=== PATIENT | male | born 1970 | race Caucasian/White ===

== ENCOUNTER 2025-05-28 10:53 | Inpatient (IN) | payer OTHER ==
[~2025-05-28] VITALS: Ht 182.9 cm; Wt 88.6 kg
[2025-05-28 13:47] VITALS: BP 121/92; TEMP 98.1
[2025-05-28 15:11] VITALS: BP 121/92; TEMP 98.1
[2025-05-28] MEDS ORDERED: REMEDY ESSENTIAL ZINC PASTE 113 GM TOP PRN (21:00)
[2025-05-28] MEDS ORDERED: ONDA4TAB5 PO (21:22)
[2025-05-28] MEDS ORDERED: PROC5TAB56 PO (21:22)
[2025-05-28] MEDS ORDERED: OXYC5TAB3 PO (21:22)
[2025-05-28] MEDS ORDERED: LEVE100023 PO (21:22)
[2025-05-28] MEDS ORDERED: IPRA3AMP23 NEB (21:22)
[2025-05-28] MEDS ORDERED: NA P133E RC (21:22)
[2025-05-28] MEDS ORDERED: BISA10SU95 RC (21:22)
[2025-05-28] MEDS ORDERED: OXYC10TA49 PO (21:22)
[2025-05-28] MEDS ORDERED: DOCU100C36 PO (21:22)
[2025-05-28] MEDS ORDERED: HEPA500034 SUBCUT (21:22)
[2025-05-28] MEDS ORDERED: PANT40TA49 PO (21:22)
[2025-05-28] MEDS ORDERED: HYDR-4075 PO (21:22)
[2025-05-28] MEDS ORDERED: DEXA10VI6 IVP ×2 (21:22)
[2025-05-28] MEDS ORDERED: POLY119P2 PO (21:22)
[2025-05-28] MEDS ORDERED: DEXA4TAB PO (21:22)
[2025-05-28] MEDS ORDERED: LACO50TA2 PO (21:22)
[2025-05-28] MEDS ORDERED: MAGN400O6 PO (21:22)
[2025-05-28] MEDS ORDERED: FLEET ENEMA 133 ML BOTTLE RC PRN (22:00)
[2025-05-28] MEDS ORDERED: OXYCODONE HCL 5 MG TABLET PO PRN ×2 (22:00)
[2025-05-28] MEDS ORDERED: ONDANSETRON HCL 4 MG TABLET PO PRN (22:00)
[2025-05-28 22:13] VITALS: BP 105/71; TEMP 98.4; O2SAT 95
[2025-05-28] MEDS ORDERED: ALBUTEROL SULFATE 2.5 MG/3 ML NEBU NEB PRN (22:15)
[2025-05-28] MEDS: DEXAMETHASONE SOD PHOSPHATE 4 MG INJ IV ONE (22:50)
[2025-05-29] MEDS: PANTOPRAZOLE SODIUM 40 MG TABLET.DR PO SCH (06:41)
[2025-05-29] MEDS: DEXAMETHASONE SOD PHOSPHATE 4 MG INJ IV SCH (06:41)
[2025-05-29 06:55] VITALS: BP 114/75; TEMP 98; O2SAT 95
[2025-05-29] MEDS ORDERED: POLYETHYLENE GLYCOL 3350 238 GM POWDER PO SCH (09:00)
[2025-05-29] MEDS ORDERED: MIRALAX 17 GM POWD.PACK PO SCH (09:00)
[2025-05-29] MEDS: LACOSAMIDE 50 MG TABLET PO SCH (09:16)
[2025-05-29] MEDS: DOCUSATE SODIUM 100 MG CAPSULE PO SCH (09:16)
[2025-05-29] MEDS: HEPARIN SODIUM,PORCINE 5,000 UNITS/ML VIAL SQ SCH (09:19)
[2025-05-29 09:50] VITALS: BP 128/83; TEMP 97.5; O2SAT 97
[2025-05-29] MEDS: MIRALAX 17 GM POWD.PACK PO PRN (17:44)
[2025-05-29 18:17] VITALS: BP 118/83; TEMP 97.6; O2SAT 97
[2025-05-29 20:00] VITALS: BP 122/78; TEMP 97.5; O2SAT 95
[2025-05-30 06:03] VITALS: BP 114/77; TEMP 97.6; O2SAT 97
[2025-05-30 07:45] VITALS: BP 116/83; TEMP 97.6; O2SAT 95
[2025-05-30 16:01] VITALS: BP 113/79; TEMP 97.8; O2SAT 96
[2025-05-30 20:05] VITALS: BP 110/71; TEMP 97.7; O2SAT 95
[2025-05-31 06:41] VITALS: BP 114/74; TEMP 98; O2SAT 95
[2025-05-31 07:00] LABS: PLATELET COUNT (AUTO) 337 K/uL (152-348); RED BLOOD CELL COUNT(AUTO) 4.02 MIL/uL (4.06-5.63); RED CELL DISTRIBUTION WIDTH 13.2 % (12.1-16.2); WHITE BLOOD COUNT (AUTO) 10.3 K/uL (3.6-10.2)
[2025-05-31 07:13] LABS: ASPARTATE AMINOTRANSFERASE 24.0 U/L (15-37); CREATININE 0.9 mg/dL (0.6-1.3); SODIUM SERUM 133.0 mmol/L (136-145); TOTAL PROTEIN, SERUM 6.5 g/dL (6.4-8.2); UREA NITROGEN, BLOOD 17.0 mg/dL (7-18)
[2025-05-31 08:00] VITALS: BP 117/77; TEMP 97.4; O2SAT 94
[2025-05-31] MEDS: MAGNESIUM HYDROXIDE 30 ML LIQUID UDC PO PRN (17:17)
[2025-05-31 18:03] VITALS: BP 120/77; TEMP 96.9; O2SAT 96
[2025-05-31 19:55] VITALS: BP 112/76; TEMP 97.8; O2SAT 96
[2025-06-01 05:56] VITALS: BP 119/77; TEMP 97.4; O2SAT 97
[2025-06-01 16:00] VITALS: BP 115/82; TEMP 97.5; O2SAT 94
[2025-06-01 20:30] VITALS: BP 116/78; TEMP 98; O2SAT 96
[2025-06-02 06:55] VITALS: BP 114/75; TEMP 97.9; O2SAT 96
[2025-06-02 09:37] VITALS: BP 117/74; TEMP 98.3; O2SAT 98
[2025-06-02 15:12] VITALS: BP 124/45; TEMP 97.9; O2SAT 95
[2025-06-02 20:15] VITALS: BP 100/64; TEMP 97.7; O2SAT 96
[2025-06-03 06:21] VITALS: BP 112/76; TEMP 97.8; O2SAT 96
[2025-06-03 08:00] VITALS: BP 110/67; TEMP 98.2; O2SAT 98
[2025-06-03 15:58] VITALS: BP 113/72; TEMP 97.7; O2SAT 98
[2025-06-04 02:22] VITALS: BP 108/65; TEMP 97.9; O2SAT 97
[2025-06-04 07:49] VITALS: BP 102/68; TEMP 97.9; O2SAT 95
[2025-06-04 16:46] VITALS: BP 112/77; TEMP 97.9; O2SAT 96
[2025-06-04 20:41] VITALS: BP 107/64; TEMP 97.5; O2SAT 95
[2025-06-05 08:00] VITALS: BP 109/78; TEMP 97.7; O2SAT 95
[2025-06-05 16:00] VITALS: BP 104/69; TEMP 98.1; O2SAT 97
[2025-06-05 20:15] VITALS: BP 102/55; TEMP 97.9; O2SAT 97
[2025-06-06 05:53] VITALS: BP 109/64; TEMP 97.8; O2SAT 96
[2025-06-06 08:00] VITALS: BP 108/71; TEMP 98; O2SAT 96
[2025-06-06 16:00] VITALS: BP 108/70; TEMP 97.8; O2SAT 95
[2025-06-06 20:08] VITALS: BP 100/60; TEMP 97.5; O2SAT 95
[2025-06-07 05:04] VITALS: BP 107/69; TEMP 97.9; O2SAT 96
[2025-06-07] MEDS: DEXAMETHASONE SOD PHOSPHATE 4 MG INJ IV SCH (06:25)
[2025-06-07 16:00] VITALS: BP 103/62; TEMP 97.9; O2SAT 94
[2025-06-07 21:17] VITALS: BP 99/62; TEMP 98; O2SAT 95
[2025-06-08 07:50] VITALS: BP 108/70; TEMP 97.8; O2SAT 98
[2025-06-08 16:00] VITALS: BP 108/60; TEMP 97.8; O2SAT 98
[2025-06-08 21:26] VITALS: BP 92/50; TEMP 98.6; O2SAT 95
[2025-06-09 05:00] VITALS: BP 107/64; TEMP 97.5; O2SAT 95
[2025-06-09 08:01] VITALS: BP 106/69; TEMP 97.8; O2SAT 95
[2025-06-09 08:17] LABS: PLATELET COUNT (AUTO) 316 K/uL (152-348); RED BLOOD CELL COUNT(AUTO) 3.86 MIL/uL (4.06-5.63); RED CELL DISTRIBUTION WIDTH 13.9 % (12.1-16.2); WHITE BLOOD COUNT (AUTO) 7.4 K/uL (3.6-10.2)
[2025-06-09 08:40] LABS: CREATININE 1.0 mg/dL (0.6-1.3); SODIUM SERUM 139.0 mmol/L (136-145); UREA NITROGEN, BLOOD 14.0 mg/dL (7-18)
[2025-06-09 16:01] VITALS: BP 97/69; TEMP 97.6; O2SAT 96
[2025-06-09 20:13] VITALS: BP 96/58; TEMP 98; O2SAT 94
[2025-06-10 05:42] VITALS: BP 107/69; TEMP 98; O2SAT 94
[2025-06-10 08:49] VITALS: BP 102/71; TEMP 98.1; O2SAT 93
[2025-06-10] MEDS: DEXAMETHASONE SOD PHOSPHATE 4 MG INJ IV SCH (09:18)
[2025-06-10 16:08] VITALS: BP 111/76; TEMP 97.7; O2SAT 92
[2025-06-10 19:58] VITALS: BP 99/64; TEMP 97.8; O2SAT 95
[2025-06-11 06:42] VITALS: BP 110/70; TEMP 97.2; O2SAT 96
[2025-06-11 08:00] VITALS: BP 103/67; TEMP 98; O2SAT 95
[2025-06-11 16:24] VITALS: BP 97/68; TEMP 97.9; O2SAT 93
[2025-06-11 19:40] VITALS: BP 93/66; TEMP 98.1; O2SAT 96
[2025-06-12 06:13] VITALS: BP 104/68; TEMP 98; O2SAT 95
[2025-06-12 07:46] VITALS: BP 108/74; TEMP 97.6; O2SAT 97
[2025-06-12] MEDS ORDERED: ALBU2.5V13 NEB (16:21)
[2025-06-12] MEDS ORDERED: ZINC113P3 TP (16:25)
== END 2025-06-12 14:30 | disposition short-term general hospital (02) | DRG 57 ==
PROVIDERS: ADMIT Physical Medicine & Rehabilitation Pain Medicine; ATTEND Internal Medicine
DX: I69.351 Hemiplegia and hemiparesis following cerebral infarction affecting right dominant side (principal); D68.59 Other primary thrombophilia; I82.431 Acute embolism and thrombosis of right popliteal vein; Z98.890 Other specified postprocedural states; D33.2 Benign neoplasm of brain, unspecified; R53.1 Weakness; F80.1 Expressive language disorder; I10 Essential (primary) hypertension; C44.91 Basal cell carcinoma of skin, unspecified; E78.5 Hyperlipidemia, unspecified; F41.9 Anxiety disorder, unspecified; G40.909 Epilepsy, unspecified, not intractable, without status epilepticus; K21.9 Gastro-esophageal reflux disease without esophagitis; Z87.891 Personal history of nicotine dependence; G89.29 Other chronic pain; R60.0 Localized edema
CPT/HCPCS: 36415; 82652; 83735; 84100; 84443; 85025; 85730; 97535-GO-CO; A4663; J1100; J1644

== ENCOUNTER 2025-06-12 15:31 | Inpatient (IN) | payer OTHER ==
[~2025-06-12] VITALS: Ht 182.9 cm; Wt 63.2 kg
[2025-06-12 15:00] VITALS: BP 106/66; TEMP 98.4; O2SAT 100
[~2025-06-12 15:31] MED LIST: BISA10SU95 RC; DEXA10VI6 IVP; DOCU100C36 PO; HEPA500034 SUBCUT; HYDR-4075 PO; IPRA3AMP23 NEB; LACO50TA2 PO; LEVE100023 PO; MAGN400O6 PO; NA P133E RC; ONDA4TAB5 PO; OXYC10TA49 PO; OXYC5TAB3 PO; PANT40TA49 PO; POLY119P2 PO; PROC5TAB56 PO
[2025-06-12] MEDS ORDERED: ALBU2.5V13 NEB (16:21)
[2025-06-12] MEDS ORDERED: ZINC113P3 TP (16:25)
[2025-06-12] MEDS ORDERED: MAGNESIUM HYDROXIDE 30 ML LIQUID UDC PO PRN (16:45)
[2025-06-12] MEDS ORDERED: ALBUTEROL SULFATE 2.5 MG/ 0.5 ML NEBU NEB PRN (16:45)
[2025-06-12] MEDS ORDERED: REMEDY ESSENTIAL ZINC PASTE 113 GM TOP PRN (16:45)
[2025-06-12] MEDS ORDERED: OXYCODONE HCL 5 MG TABLET PO PRN ×2 (16:45)
[2025-06-12] MEDS ORDERED: FLEET ENEMA 133 ML BOTTLE RC PRN (16:45)
[2025-06-12] MEDS ORDERED: POLYETHYLENE GLYCOL 3350 238 GM POWDER PO PRN (16:45)
[2025-06-12] MEDS ORDERED: MIRALAX 17 GM POWD.PACK PO PRN (17:13)
[2025-06-12] MEDS: DOCUSATE SODIUM 100 MG CAPSULE PO SCH (18:14)
[2025-06-12] MEDS ORDERED: ACETAMINOPHEN 325 MG TABLET PO PRN (18:15)
[2025-06-12] MEDS: LACOSAMIDE 50 MG TABLET PO SCH (20:22)
[2025-06-12] MEDS: HEPARIN SODIUM,PORCINE 5,000 UNITS/ML VIAL SQ SCH (20:27)
[2025-06-12 22:56] VITALS: BP 103/64; TEMP 98; O2SAT 95
[2025-06-13 04:00] VITALS: BP 107/77; TEMP 97.9; O2SAT 94
[2025-06-13 06:44] LABS: PLATELET COUNT (AUTO) 255 K/uL (152-348); RED BLOOD CELL COUNT(AUTO) 3.71 MIL/uL (4.06-5.63); RED CELL DISTRIBUTION WIDTH 13.8 % (12.1-16.2); WHITE BLOOD COUNT (AUTO) 5.4 K/uL (3.6-10.2)
[2025-06-13 07:01] LABS: ASPARTATE AMINOTRANSFERASE 65.0 U/L (15-37); CREATININE 0.9 mg/dL (0.6-1.3); SODIUM SERUM 138.0 mmol/L (136-145); TOTAL PROTEIN, SERUM 5.6 g/dL (6.4-8.2); UREA NITROGEN, BLOOD 15.0 mg/dL (7-18)
[2025-06-13 08:01] LABS: IRON, SERUM 59.0 ug/dL (50-175)
[2025-06-13 08:08] VITALS: BP 95/62; TEMP 97.7; O2SAT 96
[2025-06-13] MEDS: PANTOPRAZOLE SODIUM 40 MG TABLET.DR PO SCH (09:37)
[2025-06-13] MEDS: DEXAMETHASONE SOD PHOSPHATE 4 MG INJ IV SCH (09:37)
[2025-06-13 11:32] VITALS: BP 104/66; TEMP 97.8; O2SAT 95
[2025-06-13 16:10] VITALS: BP 99/67; TEMP 97.9; O2SAT 96
[2025-06-13 19:00] VITALS: BP 109/67; TEMP 97.9; O2SAT 94
[2025-06-13] MEDS ORDERED: LACOSAMIDE 50 MG TABLET ONE (21:19)
[2025-06-14 04:00] VITALS: BP 111/67; TEMP 97.7; O2SAT 100
[2025-06-14 06:59] LABS: PLATELET COUNT (AUTO) 248 K/uL (152-348); RED BLOOD CELL COUNT(AUTO) 3.81 MIL/uL (4.06-5.63); RED CELL DISTRIBUTION WIDTH 14.1 % (12.1-16.2); WHITE BLOOD COUNT (AUTO) 6.4 K/uL (3.6-10.2)
[2025-06-14 07:10] LABS: ASPARTATE AMINOTRANSFERASE 45.0 U/L (15-37); CREATININE 0.8 mg/dL (0.6-1.3); SODIUM SERUM 141.0 mmol/L (136-145); TOTAL PROTEIN, SERUM 5.9 g/dL (6.4-8.2); UREA NITROGEN, BLOOD 11.0 mg/dL (7-18)
[2025-06-14] MEDS: APIXABAN 5 MG TABLET PO SCH (09:12)
[2025-06-14] MEDS: LACOSAMIDE 50 MG TABLET PO SCH (11:40)
[2025-06-14] MEDS ORDERED: IOHEXOL 300MG/ML 100 ML INFUS..BTL ONE (15:17)
[2025-06-14] MEDS ORDERED: IV NORMAL SALINE 250 ML IV ONE (15:17)
[2025-06-14] MEDS ORDERED: SWABABLE VALVE TRANSFER SET EA MC ONE (15:17)
[2025-06-14 15:39] VITALS: BP 91/61; TEMP 98; O2SAT 96
[2025-06-14 21:26] VITALS: BP 99/55; TEMP 98; O2SAT 93
[2025-06-15 06:47] VITALS: BP 102/70; TEMP 97.5; O2SAT 93
[2025-06-15 11:04] VITALS: BP 104/64; TEMP 98.8; O2SAT 93
[2025-06-15 15:32] VITALS: BP 109/69; TEMP 98.8; O2SAT 95
[2025-06-15 19:00] VITALS: BP 107/70; TEMP 98; O2SAT 95
[2025-06-16 04:00] VITALS: BP 110/73; TEMP 98.2; O2SAT 96
[2025-06-16 12:06] VITALS: BP 93/60; TEMP 97.8; O2SAT 95
[2025-06-16 15:47] VITALS: BP 92/69; TEMP 97.6; O2SAT 97
[2025-06-16 19:00] VITALS: BP 95/64; TEMP 97.5; O2SAT 93
[2025-06-17 04:05] VITALS: BP 103/70; TEMP 98; O2SAT 94
[2025-06-17 06:48] LABS: PLATELET COUNT (AUTO) 207 K/uL (152-348); RED BLOOD CELL COUNT(AUTO) 3.91 MIL/uL (4.06-5.63); RED CELL DISTRIBUTION WIDTH 14.0 % (12.1-16.2); WHITE BLOOD COUNT (AUTO) 5.7 K/uL (3.6-10.2)
[2025-06-17 07:07] LABS: ASPARTATE AMINOTRANSFERASE 51.0 U/L (15-37); CREATININE 0.8 mg/dL (0.6-1.3); SODIUM SERUM 137.0 mmol/L (136-145); TOTAL PROTEIN, SERUM 6.0 g/dL (6.4-8.2); UREA NITROGEN, BLOOD 13.0 mg/dL (7-18)
[2025-06-17 10:59] VITALS: BP 99/66; TEMP 98.7; O2SAT 93
[2025-06-17 15:05] VITALS: BP 101/58; TEMP 98.4; O2SAT 98
[2025-06-17 19:00] VITALS: BP 103/66; TEMP 98.6; O2SAT 95
[2025-06-18 05:00] VITALS: BP 104/68; TEMP 97.8; O2SAT 94
[2025-06-18 11:13] VITALS: BP 104/68; TEMP 97.6; O2SAT 96
[2025-06-18 15:12] VITALS: BP 100/76; TEMP 98.4; O2SAT 96
[2025-06-18 19:18] VITALS: BP 96/62; TEMP 97.8; O2SAT 95
[2025-06-19 05:25] VITALS: BP 91/51; TEMP 97.8; O2SAT 100
[2025-06-19 07:20] LABS: PLATELET COUNT (AUTO) 212 K/uL (152-348); RED BLOOD CELL COUNT(AUTO) 3.86 MIL/uL (4.06-5.63); RED CELL DISTRIBUTION WIDTH 13.8 % (12.1-16.2); WHITE BLOOD COUNT (AUTO) 5.4 K/uL (3.6-10.2)
[2025-06-19 07:46] LABS: ASPARTATE AMINOTRANSFERASE 25.0 U/L (15-37); CREATININE 0.7 mg/dL (0.6-1.3); SODIUM SERUM 137.0 mmol/L (136-145); TOTAL PROTEIN, SERUM 5.8 g/dL (6.4-8.2); UREA NITROGEN, BLOOD 12.0 mg/dL (7-18)
[2025-06-19 12:10] VITALS: BP 103/64; TEMP 98.2; O2SAT 94
[2025-06-19 16:11] VITALS: BP 102/65; TEMP 98.6; O2SAT 95
[2025-06-19] MEDS ORDERED: POLY17PO4 PO (17:36)
[2025-06-19] MEDS ORDERED: APIX5TAB PO (17:36)
[2025-06-21] MEDS ORDERED: APIXABAN 5 MG TABLET PO SCH (09:00)
== END 2025-06-19 19:10 | DRG 299 ==
LOC: MEDSURG3 15:31 → TELE3 18:38 → MEDSURG3 06-13 12:55
PROVIDERS: ADMIT Internal Medicine; ATTEND Internal Medicine
DX: I82.431 Acute embolism and thrombosis of right popliteal vein (principal); I61.1 Nontraumatic intracerebral hemorrhage in hemisphere, cortical; I63.532 Cerebral infarction due to unspecified occlusion or stenosis of left posterior cerebral artery; D68.59 Other primary thrombophilia; G81.91 Hemiplegia, unspecified affecting right dominant side; G40.909 Epilepsy, unspecified, not intractable, without status epilepticus; Z85.841 Personal history of malignant neoplasm of brain; E78.5 Hyperlipidemia, unspecified; F41.9 Anxiety disorder, unspecified; Z87.891 Personal history of nicotine dependence; H53.462 Homonymous bilateral field defects, left side; Z79.01 Long term (current) use of anticoagulants; Z98.890 Other specified postprocedural states
CPT/HCPCS: 36415; 70470; 70551; 71045; 83550; 83690; 83735; 84100; 85025; 85730; 93005; 97535-GO-CO; G0378; J1100; J1644; Q9967